=== PATIENT | female | born 1950 | race Caucasian/White ===

== ENCOUNTER 2017-10-04 15:55 | Emergency (ER) | payer OTHER ==
[~2017-10-04] VITALS: Ht 172.7 cm; Wt 95.1 kg
[~2017-10-04 15:55] MED LIST: AMOXICILLIN500 M1 PO; Bactrim,Septra DS 80 PO; CIPROFLOXACIN500 M1 PO; Flexeril PO; GABAPENTIN100 MG PO; Percocet 5/325,Endoc PO; Phenergan PO; TYLENOL EXTRA500 MG PO; ZITHROMAX Z-PA250 MG PO
[2017-10-04 16:56] LABS: BASOPHIL (%) 0.3 % (0-1); EOSINOPHIL (%) 0 % (0-5); HEMATOCRIT 41.8 % (36.0-46.0); HEMOGLOBIN 14.7 G/DL (11.9-15.5); LYMPHOCYTE (%) 29.6 % (15-42); LYMPHOCYTE COUNT 0.9 K/uL (1.0-2.8); MCH 30.8 PG (29.0-34.0); MCHC 35.2 G/DL (30.0-36.0); MCV 87.6 FL (83-99); MONOCYTE (%) 16.3 % (3-12); MONOCYTE COUNT 0.5 K/uL (0-0.8); NEUTROPHIL (%) 53.8 % (45-76); NEUTROPHIL COUNT 1.7 K/uL (1.8-6.4); PLATELET COUNT 100 K/uL (156-360); RBC DIS.WIDTH-CV 12.7 % (11.8-14.6); RBC DIS.WIDTH-SD 40.8 % (39-53); RED BLOOD COUNT 4.77 M/uL (3.80-5.20); WHITE BLOOD COUNT 3.1 K/uL (4.1-10.2)
[2017-10-04 17:04] LABS: ALBUMIN 4.1 g/dL (3.2-4.8)
[2017-10-04 17:05] LABS: CHLORIDE 107 mEq/L (99-109); POTASSIUM 3.4 mEq/L (3.7-5.4); SODIUM 142 mEq/L (136-147)
[2017-10-04 17:07] LABS: GLUCOSE 116 mg/dL (70-99); TOTAL PROTEIN 7.3 g/dL (6.4-8.3)
[2017-10-04 17:09] LABS: TOTAL BILIRUBIN 0.7 mg/dL (0.0-1.0)
[2017-10-04 17:10] LABS: ALKALINE PHOSPHATASE 69 IU/L (3-129)
[2017-10-04 17:11] LABS: CREATININE 0.8 mg/dL (0.6-1.3); GFR ESTIMATE (CALCULATED) > 59 mL/min/
[2017-10-04 17:12] LABS: AST (GOT) 49 IU/L (2-34); UREA NITROGEN (BUN) 12 mg/dL (9-23)
[2017-10-04 17:13] LABS: ALT (GPT) 33 IU/L (3-49)
[2017-10-04 17:19] LABS: TROP-I INTERPRETATION NEGATIVE; TROPONIN-I < 0.01 ng/mL (0.0-0.30)
[2017-10-04 20:14] LABS: TROP-I INTERPRETATION NEGATIVE; TROPONIN-I 0.01 ng/mL (0.0-0.30)
[2017-10-04] MEDS ORDERED: ANTIVERT25 MG PO (20:44)
[2017-10-04] MEDS ORDERED: ZOFRAN4 MG PO (20:44)
[2017-10-04 21:25] VITALS: BP 130/80
== END 2017-10-04 21:26 | disposition home or self-care (01) ==
LOC: EME 15:55
PROVIDERS: Emergency Medicine
DX: R42 Dizziness and giddiness (principal); J10.1 Influenza due to other identified influenza virus with other respiratory manifestations; Z87.891 Personal history of nicotine dependence
CPT/HCPCS: 71046; 80053; 81003; 83605; 84484; 85025; 87040; 93005; 99281; 99284; J2405; J7030